=== PATIENT | male | born 1965 | race Caucasian/White ===

== ENCOUNTER 2019-01-17 09:50 | Day surgery (SDC) | payer BC ==
[2019-01-15 15:35] VITALS: BMI 26.9
[2019-01-17 10:14] VITALS: TEMP 97.2
[2019-01-17] MEDS ORDERED: LACTATED RINGERS 1,000 ML IV ONE (10:14)
[2019-01-17] MEDS ORDERED: LIDOCAINE 1% INJ 10MG/ML (20 ML MDV) ONE (10:43)
[2019-01-17] MEDS ORDERED: PROPOFOL 10 MG/ML 20 ML VIAL IV ONE (10:43)
[2019-01-17] MEDS ORDERED: GLYCOPYRROLATE 0.2 MG/ML 2 ML VIAL ONE (10:43)
--- NOTE | 2019-01-17 10:45 | P.GSHP ---
History of Present Illness H&P Date: 01/17/19 Chief Complaint: Epigastric pain, GERD This a 53-year-old male referred from Heri Rodriguez PA-C. Patient rents today for EGD. He's had issues with GERD and epigastric pain. Past Medical History Past Medical History: GERD/Reflux, Hyperlipidemia, Thyroid Disorder History of Any Multi-Drug Resistant Organisms: None Reported Past Surgical History: Orthopedic Surgery Additional Past Surgical History / Comment(s): LT ROTATOR CUFF REPAIR. ORIF RT HAND Past Anesthesia/Blood Transfusion Reactions: No Reported Reaction Smoking Status: Current every day smoker - Past Family History Brother(s) Family Medical History: Cancer Additional Family Medical History / Comment(s): COLON Father Family Medical History: Cancer Medications and Allergies Home Medications Medication Instructions Recorded Confirmed Type Atorvastatin [Lipitor] 20 mg PO HS 01/15/19 01/17/19 History Levothyroxine Sodium 125 mcg PO DAILY 01/15/19 01/17/19 History Omeprazole 20 mg PO DAILY 01/15/19 01/17/19 History Sucralfate [Carafate] 1 gm PO AC-TID 01/15/19 01/15/19 History Allergies Allergy/AdvReac Type Severity Reaction Status Date / Time No Known Allergies Allergy Verified 01/15/19 15:30 Surgical - Exam Vital Signs Temp Pulse Resp BP Pulse Ox 97.2 F L 64 16 197/92 95 01/17/19 10:11 01/17/19 10:11 01/17/19 10:11 01/17/19 10:11 01/17/19 10:11 - General well developed, well nourished, no distress - Eyes PERRL - ENT normal pinna - Neck no masses - Respiratory normal expansion - Cardiovascular Rhythm: regular - Abdomen Abdomen: soft, non tender Assessment and Plan Assessment: GERD. We'll perform EGD.
--- NOTE | 2019-01-17 10:54 | P.OP ---
Date of Procedure: 01/17/19 Preoperative Diagnosis: Epigastric pain Postoperative Diagnosis: Mild antral gastritis Procedure(s) Performed: EGD Anesthesia: MAC Surgeon: Alberto Lara Pathology: other (Antrum) Condition: stable Disposition: PACU Description of Procedure: The patient's placed on the endoscopy table in the lateral position. He received IV sedation. The gastroscope placed oropharynx and passed in the esophagus and into the stomach. Scope was then placed through the pylorus. First and second portion of the duodenum appeared normal. The scope was then brought back the antrum and this appeared mildly inflamed. A biopsies was performed. The scope was unretroflexed and remainder of the stomach appeared normal. There is no evidence of a hiatal hernia. The GE junction was at 47 is. The distal esophagus appeared normal. The proximal esophagus appeared normal. Scope was withdrawn for patient. Due to the patient's limited antral gastritis findings. He was scheduled for a HIDA scan to evaluate for biliary dysfunction.
[2019-01-17 11:10] VITALS: RESP 18
[2019-01-17 11:36] VITALS: BP 159/97; PULSE 58
--- NOTE | 2019-01-18 07:54 | NM ---
EXAMINATION TYPE: NM hepatobiliary w CCK DATE OF EXAM: 01/17/2019 COMPARISON: NONE HISTORY: Right upper quadrant pain TECHNIQUE: After the intravenous administration of 4.83 mCi Tc 99m Mebrofenin hepatobiliary scintigra phy is performed. Immediate images post injection. FINDINGS: There is satisfactory initial accumulation of tracer by the liver. The gallbladder is visualized wit hin 18 minutes. The small bowel activity is noted within 26 minutes. At one hour CCK was administer ed, patient was injected with 1.7 mcg of Kinevac, and gallbladder ejection fraction is calculated at 20 %, decreased. Therefore there is no scintigraphic evidence of cystic or common bile duct obstruct ion to suggest acute cholecystitis or gallbladder dyskinesia. IMPRESSION: 1. Abnormal biliary ejection fraction of 20% compatible with biliary dyskinesia. 2. No scintigraphic evidence of acute or chronic cholecystitis.
== END 2019-01-17 12:21 | disposition home or self-care (01) ==
LOC: ORWHC2ENDO 09:50
PROVIDERS: ATTEND Surgery
DX: K29.50 Unspecified chronic gastritis without bleeding (principal); E78.5 Hyperlipidemia, unspecified; F17.200 Nicotine dependence, unspecified, uncomplicated; E07.9 Disorder of thyroid, unspecified; Z79.890 Hormone replacement therapy; Z79.899 Other long term (current) drug therapy; K21.9 Gastro-esophageal reflux disease without esophagitis
CPT/HCPCS: 88305; 78227; 43239; A9537; J2805; J2001; J2704

== ENCOUNTER → 2019-03-12 | Day surgery (SDC) | payer BC, OTHER ==
[2019-03-07 15:59] VITALS: BMI 27.2
[~2019-03-12] MED LIST: BUPIVACAINE (PF) 0.5% 30 ML VIAL SQ ONE; DEXAMETHASONE SOD PHOSPHATE 10 MG/ML 1 ML VIAL IV ONE; GLYCOPYRROLATE 0.2 MG/ML 2 ML VIAL ONE; HEPARIN SODIUM,PORCINE 5,000 UNIT/ML 1 ML VIAL SQ ONE; HYDROmorphone (PF) 1 MG/ML ONE; HYDROmorphone 0.5 MG/0.5 ML SYRINGE IVP PRN; KETOROLAC 30 MG/ML 1 ML VIAL ONE; LACTATED RINGERS 1,000 ML IV ONE; LACTATED RINGERS 1,000 ML IV SCH; LIDOCAINE 1% 20 ML VIAL (10MG/ML) FOR IV START INTRADERMA PRN; LIDOCAINE 1% INJ 10MG/ML (20 ML MDV) ONE; MIDAZOLAM 2 MG/2 ML VIAL IV PRN; MIDAZOLAM 2 MG/2 ML VIAL ONE; NEOSTIGMINE 1 MG/ML 10 ML VIAL ONE; ONDANSETRON 4 MG/2 ML VIAL IVP ONE; PROPOFOL 10 MG/ML 20 ML VIAL IV ONE; ROCURONIUM BROMIDE 10 MG/ML 10 ML VIAL IV ONE; SCOPOLAMINE 1.5MG/72HR PATCH TRANSDERM ONE; SUCCINYLCHOLINE CHLORIDE 100 MG/5 ML SYR IV ONE; ceFAZolin IN SWFI 2 GM/20 ML SYRINGE IVP ONE; fentaNYL (PF) 50 MCG/ML 2 ML AMP ONE
--- NOTE | 2019-03-12 10:00 | P.GSHP ---
History of Present Illness H&P Date: 03/12/19 Chief Complaint: Right upper quadrant pain This a 53-year-old male who presents today for laparoscopic cholecystectomy. Patient complaints of right upper quadrant pain. His recent HIDA scan shows a abnormal ejection fraction consistent with biliary dyskinesia. Past Medical History Past Medical History: Hyperlipidemia, Thyroid Disorder History of Any Multi-Drug Resistant Organisms: None Reported Past Surgical History: Orthopedic Surgery Additional Past Surgical History / Comment(s): LT ROTATOR CUFF REPAIR. ORIF RT HAND. COLONOSCOPY/EGD Past Anesthesia/Blood Transfusion Reactions: No Reported Reaction Smoking Status: Current every day smoker - Past Family History Brother(s) Family Medical History: Cancer Additional Family Medical History / Comment(s): COLON Father Family Medical History: Cancer Medications and Allergies Home Medications Medication Instructions Recorded Confirmed Type Atorvastatin [Lipitor] 20 mg PO HS 01/15/19 03/12/19 History Levothyroxine Sodium 125 mcg PO DAILY 01/15/19 03/12/19 History Allergies Allergy/AdvReac Type Severity Reaction Status Date / Time No Known Allergies Allergy Verified 03/12/19 08:41 Surgical - Exam Vital Signs Temp Pulse Resp BP Pulse Ox 97.5 F L 73 16 140/88 96 03/12/19 08:33 03/12/19 08:33 03/12/19 08:33 03/12/19 08:33 03/12/19 08:33 - General well developed, well nourished, no distress - Eyes PERRL - ENT normal pinna - Neck no masses - Respiratory normal expansion - Cardiovascular Rhythm: regular - Abdomen Abdomen: soft, non tender Assessment and Plan Assessment: Biliary dyskinesia Chronic cholecystitis We will perform laparoscopic cholecystectomy.
--- NOTE | 2019-03-12 10:55 | P.OP ---
Date of Procedure: 03/12/19 Preoperative Diagnosis: Chronic cholecystitis Postoperative Diagnosis: Chronic cholecystitis Procedure(s) Performed: Laparoscopic cholecystectomy Anesthesia: BARBARA Surgeon: Alberto Lara Estimated Blood Loss (ml): 5 Pathology: other (Gallbladder) Condition: stable Disposition: PACU Description of Procedure: The patient was placed on the operating table. The patient received a general endotracheal tube anesthesia. The patients abdomen was prepped and draped in the usual sterile fashion. Through an infraumbilical stab incision, the fascia of the anterior abdominal wall was grasped with a pair of Kochers and then the Veress needle was placed in the peritoneal cavity. Position of the Veress needle was confirmed with positive drop test. The abdomen was then insufflated. After adequate insufflation, the 10 mm trocar was placed in the peritoneal cavity. Following this the laparoscope was placed in the peritoneal cavity. The patient was placed in the head-up, right side up position and then a 5 mm trocar was placed in the right lateral and right subcostal position under direct visualization. A 8 mm trocar was placed in the epigastric position. The gallbladder was grasped in the fundus and infundibulum. Traction on the gallbladder was placed in the lateral and the cephalad positions. The triangle of Calot was visualized.. The cystic duct was bluntly dissected until the union of the cystic duct and common bile duct was seen. The cystic duct was then divided and sealed with the Harmonic scissors. A PDS Endoloop was then placed throughout the cystic duct stump. The cystic artery divided and sealed with the Harmonic scissors. The gallbladder was then removed from the liver bed using Harmonic scissors. The gallbladder was then extracted through the epigastric port site. Operative field was checked for any bleeding spots and Harmonic scissors was used to coagulate the liver bed. The abdomen was irrigated. The trocars were removed. The skin was closed using interrupted 3-0 Vicryl suture. Dermabond dressing were applied. The patient tolerated the procedure well.
[2019-03-12 11:02] VITALS: TEMP 98.5
[2019-03-12 12:11] VITALS: BP 146/80; PULSE 60; RESP 16
== END ==
LOC: OR 08:22
PROVIDERS: ATTEND Surgery
DX: K81.1 Chronic cholecystitis (principal); E78.5 Hyperlipidemia, unspecified; E07.9 Disorder of thyroid, unspecified; F17.200 Nicotine dependence, unspecified, uncomplicated; Z79.890 Hormone replacement therapy; Z79.899 Other long term (current) drug therapy; Z80.0 Family history of malignant neoplasm of digestive organs
CPT/HCPCS: 88304; 47562; J2250; J1644; J1100; J2710; J2405; J2001; J3010; J1885; J1170; J0330; J2704; J0690

== ENCOUNTER → 2021-03-18 | Outpatient (CLI) | payer BC ==
--- NOTE | 2021-03-18 17:49 | XR ---
EXAMINATION TYPE: XR knee complete RT DATE OF EXAM: 03/18/2021 COMPARISON: NONE HISTORY: Right knee pain. No injury.. PAIN. TECHNIQUE: AP and lateral views of the right knee FINDINGS: No acute fracture. No dislocation. Joint spaces and alignment are normal. Minimal spurring at the patellofemoral compartment. Normal mineralization. No significant soft tissue swelling. IMPRESSION: 1. No acute fracture or dislocation. 2. Minimal patellofemoral degenerative spurring.
== END | disposition home or self-care (01) ==
LOC: RADXRMAIN 15:46
PROVIDERS: ATTEND Physician Assistant Medical
DX: M76.891 Other specified enthesopathies of right lower limb, excluding foot (principal)

== ENCOUNTER → 2021-08-03 | Outpatient (CLI) | payer OTHER ==
--- NOTE | 2021-08-03 20:24 | MR ---
EXAMINATION TYPE: MR knee RT wo con DATE OF EXAM: 08/03/2021 COMPARISON: Outside right knee x-ray July 05, 2021 HISTORY: Right knee pain and swelling for 6 months TECHNIQUE: Multiplanar, multisequence imaging of the right knee is performed without IV contrast. FINDINGS: MEDIAL MENISCUS: Oblique signal posterior horn extends to inferior articular surface sagittal image 8 . LATERAL MENISCUS: Anterior and posterior horns are intact without tear. CRUCIATE LIGAMENTS: The anterior and posterior cruciate ligaments are intact. Some cystic change ante rior to the proximal anterior tibial insertion is present. COLLATERAL LIGAMENTS: The medial collateral ligament and lateral collateral ligament complex are inta ct and unremarkable. EXTENSOR MECHANISM: Visualized quadriceps and patellar tendons are intact. EFFUSION: No significant suprapatellar joint effusion. POPLITEAL CYST: No popliteal/bolivar cyst. TRICOMPARTMENT SPACES: Mild tricompartment joint space loss. Mild patellofemoral compartment spurring . CARTILAGE: Tricompartmental articular cartilage is maintained. BONE MARROW SIGNAL: No focal abnormal marrow signal is appreciated. OTHER: No additional significant abnormality is appreciated. IMPRESSION: 1. Oblique full-thickness tear posterior horn medial meniscus. 2. Mild tricompartment degenerative changes.
== END | disposition home or self-care (01) ==
LOC: RADMRIMAIN 16:39
PROVIDERS: ATTEND Orthopaedic Surgery
DX: M23.221 Derangement of posterior horn of medial meniscus due to old tear or injury, right knee (principal); M17.11 Unilateral primary osteoarthritis, right knee

== ENCOUNTER → 2021-08-15 | Outpatient (CLI) | payer OTHER ==
[2021-08-15 16:16] LABS: Basophils # (A) 0.1 k/uL (0-0.2); Basophils % (A) 1 %; Eosinophils # (A) 0.8 k/uL (0-0.7); Eosinophils % (A) 9 %; HCT 43.7 % (39.0-53.0); HGB 14.4 gm/dL (13.0-17.5); Lymphocytes % (A) 32 %; MCH 29.6 pg (25.0-35.0); MCHC 33.1 g/dL (31.0-37.0); MCV 89.4 fL (80.0-100.0); Mean Platelet Volume 6.5; Monocytes # (A) 1.1 k/uL (0-1.0); Monocytes % (A) 11 %; Neutrophils # (A) 4.2 k/uL (1.3-7.7); Neutrophils % (A) 44 %; Platelet Count 346 k/uL (150-450); RBC 4.89 m/uL (4.30-5.90); RDW 12.9 % (11.5-15.5); WBC 9.4 k/uL (3.8-10.6)
[2021-08-15 16:31] LABS: Potassium 4.2 mmol/L (3.5-5.1)
== END | disposition home or self-care (01) ==
LOC: LABPAT 15:41
PROVIDERS: ATTEND Orthopaedic Surgery
DX: Z01.818 Encounter for other preprocedural examination (principal); M23.91 Unspecified internal derangement of right knee
CPT/HCPCS: 80051; 85025; 93005

== ENCOUNTER 2021-09-07 12:51 | Day surgery (SDC) | payer OTHER ==
[2021-09-05 09:49] VITALS: BMI 25.8
--- NOTE | 2021-09-06 20:36 | HP ---
HISTORY AND PHYSICAL DATE OF SURGERY: 09/07/2021 Shilo Rouse is a 56-year-old gentleman seen with progressive right knee pain. We discussed treatment options with him. He elected to proceed with right knee arthroscopy. Consent was obtained. PAST MEDICAL HISTORY: Hypertension, hyperlipidemia, [id number] diabetes. PAST SURGICAL HISTORY: Noncontributory. DAILY MEDICATIONS: Atorvastatin, levothyroxine, lisinopril, metformin. ALLERGIES: None. SOCIAL HISTORY: He denies current tobacco use. PHYSICAL EVALUATION OF THE RIGHT KNEE: Range of motion 0-120. Mild effusion. Tenderness medial joint line. Positive medial Risa's. Ligaments stable. Hip rotation without pain. Distal neurovascular exam intact. Right knee radiographs revealed mild osteoarthritis. Right knee MRI revealed medial meniscal tear. IMPRESSION: 1. Internal derangement of right knee with medial meniscal tear. 2. Hypertension. 3. Hyperlipidemia. 4. Xai-hdisbuv-vmyxvycqa diabetes. PLAN: Right knee arthroscopy with partial meniscectomy and debridement. MMODL / IJN: [id number] /
[~2021-09-07 12:51] MED LIST changes: -BUPIVACAINE (PF) 0.5% 30 ML VIAL SQ ONE; -DEXAMETHASONE SOD PHOSPHATE 10 MG/ML 1 ML VIAL IV ONE; +DEXAMETHASONE SOD PHOSPHATE 4 MG/ML 1 ML VIAL IV ONE; -GLYCOPYRROLATE 0.2 MG/ML 2 ML VIAL ONE; -HEPARIN SODIUM,PORCINE 5,000 UNIT/ML 1 ML VIAL SQ ONE; -HYDROmorphone (PF) 1 MG/ML ONE; -KETOROLAC 30 MG/ML 1 ML VIAL ONE; -LACTATED RINGERS 1,000 ML IV ONE; +LIDOCAINE 1% (10MG/ML) FOR IV START INTRADERMA PRN; -LIDOCAINE 1% 20 ML VIAL (10MG/ML) FOR IV START INTRADERMA PRN; -LIDOCAINE 1% INJ 10MG/ML (20 ML MDV) ONE; -MIDAZOLAM 2 MG/2 ML VIAL IV PRN; -MIDAZOLAM 2 MG/2 ML VIAL ONE; -NEOSTIGMINE 1 MG/ML 10 ML VIAL ONE; -PROPOFOL 10 MG/ML 20 ML VIAL IV ONE; -ROCURONIUM BROMIDE 10 MG/ML 10 ML VIAL IV ONE; -SCOPOLAMINE 1.5MG/72HR PATCH TRANSDERM ONE; -SUCCINYLCHOLINE CHLORIDE 100 MG/5 ML SYR IV ONE; -ceFAZolin IN SWFI 2 GM/20 ML SYRINGE IVP ONE; -fentaNYL (PF) 50 MCG/ML 2 ML AMP ONE
[2021-09-07 13:27] LABS: Glucose,Whole Blood 98 mg/dL (75-99)
[2021-09-07] MEDS ORDERED: MIDAZOLAM 2 MG/2 ML VIAL ONE (14:28)
[2021-09-07] MEDS ORDERED: PROPOFOL 10 MG/ML 20 ML VIAL IV ONE (14:28)
[2021-09-07] MEDS ORDERED: LIDOCAINE 1% INJ 10MG/ML (20 ML MDV) ONE (14:28)
[2021-09-07] MEDS ORDERED: fentaNYL (PF) 50 MCG/ML 2 ML AMP ONE (14:28)
[2021-09-07] MEDS ORDERED: BUPIVACAINE (PF) 0.25% 30 ML VIAL SQ ONE ×2 (14:33→15:00)
[2021-09-07 15:16] VITALS: RESP 16; TEMP 97
--- NOTE | 2021-09-07 15:18 | P.OP ---
Date of Procedure: 09/07/21 Preoperative Diagnosis: Internal derangement right knee Postoperative Diagnosis: 1. Tear medial meniscus right knee 2. 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 Reactive synovitis medial, lateral and suprapatellar compartments right knee Procedure(s) Performed: 1. Arthroscopic partial medial meniscectomy right knee 2. Arthroscopic chondroplasty medial femoral condyle right knee 3. Arthroscopic partial synovectomy medial, lateral and suprapatellar compartments right knee Anesthesia: BOBA, local Surgeon: Keith Romero Estimated Blood Loss (ml): 7 Pathology: none sent Condition: stable Disposition: PACU Indications for Procedure: 56-year-old patient seen with progressive right knee pain. After treatment options were discussed, he elected to proceed with arthroscopy. Operative Findings: See description of procedure Description of Procedure: Patient was taken to the operative suite. Patient underwent a general anesthetic by the department of anesthesia. Patient was given preoperative a ntibiotics. The right lower extremity was placed in a well-padded arthroscopic leg phelps. The right leg was prepped and draped in the normal sterile orthopedic fashion. A lateral parapatellar and suprapatellar incision was made. Trochars were inserted. Arthroscopy was initiated. Suprapatellar pouch revealed diffuse thick reactive synovitis. The patellofemoral joint appeared to articulate congruently. There with grade 1 chondromalacia with no osteochondral tears present. The scope was guided into the medial gutter. No loose body or plica was identified The scope was then guided into the medial compartment. A medial parapatellar incision was made. Trocar inserted followed by probe. There was radial tears involving the posterior horn of the medial meniscus. There were grade 1 chondromalacia changes of the medial femoral condyle with some small osteochondral flap tears present. There was thick reactive synovitis anteriorly. I performed a partial medial meniscectomy getting down to stable meniscal tissue. I performed a chondroplasty of the medial femoral condyle getting down to stable osteochondral tissue. I performed a partial synovectomy decompressing the thick reactive synovitis. The residual meniscus was probed and found to be stable. The residual osteochondral surface was stable. There was good decompression of the synovitis. Scope and probe were then guided into the intercondylar notch. Cruciates were identified, probed and found to be stable. The scope and probe were then guided into lateral compartment. The lateral meniscus was probed and found to be stable. There was no chondromalacia present. There was some reactive synovitis anteriorly. I introduced a motorized shaver and performed a partial synovectomy. The shaver was removed. There was good decompression of the synovitis. The scope was in guided back into the suprapatellar compartment. I introduced a motorized shaver into the suprapatellar compartment. I debrided some piecemeal fragments of meniscus I encountered. I performed a partial synovectomy. The shaver was removed. There was good decompression of the synovitis. I took one more look on the entire knee, no residual debris. Instruments were now removed from the joint. The joint was infiltrated with .25% Marcaine. Steri-Strips were applied to the portal sites. Sterile dressings were applied. The patient was placed into a EKATERINA hose. No tourniquet was utilized. The patient was awakened, transferred to a bed and taken to recovery stable satisfactory condition.
[2021-09-07 15:36] LABS: Glucose,Whole Blood 104 mg/dL (75-99)
[2021-09-07 16:42] VITALS: BP 154/90; PULSE 54
== END 2021-09-07 16:50 | disposition home or self-care (01) ==
LOC: OR 12:51
PROVIDERS: ATTEND Orthopaedic Surgery
DX: M23.203 Derangement of unspecified medial meniscus due to old tear or injury, right knee (principal); M94.261 Chondromalacia, right knee; M65.861 Other synovitis and tenosynovitis, right lower leg; I10 Essential (primary) hypertension; E78.5 Hyperlipidemia, unspecified; E11.9 Type 2 diabetes mellitus without complications; Z79.84 Long term (current) use of oral hypoglycemic drugs; Z79.890 Hormone replacement therapy; Z79.899 Other long term (current) drug therapy; Z87.891 Personal history of nicotine dependence; E07.9 Disorder of thyroid, unspecified
CPT/HCPCS: 29881; J2250; J1100; J0690; J2405; J2001; J3010; J2704; J1170

== ENCOUNTER → 2023-10-10 | Outpatient (CLI) | payer BC ==
--- NOTE | 2023-10-10 18:59 | CTL ---
EXAMINATION TYPE: CT Low Dose Lung DATE OF EXAM: 10/10/2023 4:32 PM CLINICAL INDICATION:Male, 58 years old with history of Z12.2 LUNG CA SCREEN F17.210 HX NICOTINE DEPE NDE; Current every day smoker. 1 pack a day x 30 years , history of tobacco use. COMPARISON: None. TECHNIQUE: Multiple axial non-contrast scans were obtained from approximately the lung apices through the upper abdomen. Coronal and sagittal reformatted images were obtained. Low dose technique was uti lized. CT DLP: 89.2 mGycm, Automated exposure control for dose reduction was used. CT Contrast: Contrast used: None Oral contrast used: None FINDINGS: ======== Lack of intravenous contrast and low dose technique limits the evaluation of the vascular and soft ti ssue structures. LUNGS: No evidence of pulmonary fibrosis. No evidence of focal consolidation, pneumothorax or pleural effusion. Mild centrilobular emphysema changes. Nodules: RUL: None. RML: None. RLL: None. ALVERTO: None. LLL: None. AIRWAY: Patent and unremarkable. HEART: Size within normal limits. MEDIASTINUM: No gross evidence of adenopathy. VASCULATURE: No aortic aneurysm. MUSCULOSKELETAL: No acute osseous abnormalities SOFT TISSUES/LYMPH NODES: Unremarkable. LOWER NECK: No significant findings. UPPER ABDOMEN: No significant findings. IMPRESSION: 1. No pulmonary nodules. 2. Mild emphysema. CT LUNG RAD AND CT CHEST RECOMMENDATION: Lung-Rad 1 Negative: Continue annual screening with LDCT in 12 months. S Modifier (other clinically significant findings): None Recommend smoking cessation (if current smoker), or continuation of smoking cessation (if prior smoke r). Annual screening for lung cancer with low-dose computed tomography is recommended in adults ages 55 to 77 years who have a 30 pack-year smoking history and currently smoke or have quit within the pa st 15 years. Screening should be discontinued once a person has not smoked for 15 years or develops a health problem that substantially limits life expectancy or the ability or willingness to have curat ryan lung surgery. Lung rads 2021 [email or web address]
== END | disposition home or self-care (01) ==
LOC: RADCTMAIN 15:38
PROVIDERS: ATTEND Family Medicine
DX: Z12.2 Encounter for screening for malignant neoplasm of respiratory organs (principal); J43.2 Centrilobular emphysema; F17.210 Nicotine dependence, cigarettes, uncomplicated
CPT/HCPCS: 71271

== ENCOUNTER → 2024-10-17 | Outpatient (CLI) | payer BC ==
--- NOTE | 2024-10-17 19:30 | CTL ---
EXAMINATION TYPE: CT Low Dose Lung DATE OF EXAM: 10/17/2024 4:30 PM COMPARISON: 10/10/2023 CLINICAL INDICATION: Male, 59 years old with history of Z12.2 ENCNTR SCREEN FO F17.210 NICOTINE DEPEN DENCE; former tobacco user, history of tobacco use. TECHNIQUE: Multiple axial non-contrast scans were obtained from approximately the lung apices through the upper abdomen. Coronal and sagittal reformatted images were obtained. Low dose technique was uti lized. MIP were created on a separate workstation and submitted for review. CT DLP: 88.5 mGycm, Automated exposure control for dose reduction was used. CT Contrast: Contrast used: None Oral contrast used: None FINDINGS: Lack of intravenous contrast and low dose technique limits the evaluation of the vascular and soft ti ssue structures. LUNGS: No evidence of pulmonary fibrosis. No evidence of focal consolidation, pneumothorax or pleural effusion. Centrilobular emphysema changes. Nodules: RUL: None. RML: None. RLL: Intrafissural lymph node measuring 3 mm. ALVERTO: None. LLL: None. AIRWAY: Patent and unremarkable. HEART: Size within normal limits. MEDIASTINUM: No gross evidence of adenopathy. VASCULATURE: No aortic aneurysm. MUSCULOSKELETAL: No acute osseous abnormalities SOFT TISSUES/LYMPH NODES: Unremarkable. LOWER NECK: No significant findings. UPPER ABDOMEN: No significant findings. IMPRESSION: 1. No clinically significant pulmonary nodules. 2. Mild emphysema. CT LUNG RAD AND CT CHEST RECOMMENDATION: Lung-Rad 2 Benign Appearance or Behavior: Continue annual sc reening with LDCT in 12 months. S Modifier (other clinically significant findings): None Recommend smoking cessation (if current smoker), or continuation of smoking cessation (if prior smoke r). Annual screening for lung cancer with low-dose computed tomography is recommended in adults ages 55 to 77 years who have a 30 pack-year smoking history and currently smoke or have quit within the pa st 15 years. Screening should be discontinued once a person has not smoked for 15 years or develops a health problem that substantially limits life expectancy or the ability or willingness to have curat ryan lung surgery. Lung rads 2021 [email or web address] [facility], , 10/17/2024 7:27 PM
== END | disposition home or self-care (01) ==
LOC: RADCTMAIN 15:40
PROVIDERS: ATTEND Family Medicine
DX: Z12.2 Encounter for screening for malignant neoplasm of respiratory organs (principal); F17.210 Nicotine dependence, cigarettes, uncomplicated; J43.9 Emphysema, unspecified
CPT/HCPCS: 71271